=== PATIENT | male | born 1950 | race African-American/Black ===

== ENCOUNTER 2020-04-24 11:19 | Inpatient (IN) ==
[2020-04-24] MEDS ORDERED: DILTIAZEM 50 MG/10 ML VIAL IV STA (11:42)
[2020-04-24] MEDS ORDERED: fentaNYL 100 MCG/2 ML VIAL ONE (12:02)
[2020-04-24] MEDS ORDERED: MIDAZOLAM 2 MG/2 ML VIAL ONE (12:02)
[2020-04-24] MEDS ORDERED: HEPARIN/NACL 0.9% 2 UNITS/ML 1,500 ML IV ONE (12:05)
[2020-04-24] MEDS ORDERED: LIDOCAINE 1% 20 ML VIAL ONE (12:05)
[2020-04-24] MEDS ORDERED: ASPIRIN 325 MG TABLET ONE (12:16)
[2020-04-24] MEDS ORDERED: TICAGRELOR 90 MG TABLET ONE (12:16)
[2020-04-24] MEDS ORDERED: METOPROLOL TARTRATE 5 MG/5 ML VIAL IV ONE (12:19)
[2020-04-24 12:20] LABS: PT Patient Result 10.5 SECS (9.8-11.9); Partial Thromboplastin Time 21.4 SECS (23.9-33.8)
[2020-04-24] MEDS ORDERED: NITROGLYCERIN DRIP 50 MG/250 ML BOTTLE IV ONE (12:35)
[2020-04-24] MEDS ORDERED: SODIUM CHLORIDE 0.9% 1,000 ML IV SCH (13:00)
[2020-04-24] MEDS ORDERED: ACETAMINOPHEN 325 MG TABLET PO PRN (14:24)
[2020-04-24] MEDS ORDERED: ONDANSETRON 4 MG/2 ML VIAL IV PRN (14:24)
[2020-04-24] MEDS ORDERED: MAGNESIUM SULF RIDER 2 GM in PREMIX 1 EACH IV PRN (14:24)
[2020-04-24] MEDS ORDERED: SIMETHICONE CHEW 125 MG TABLET PO PRN (14:24)
[2020-04-24] MEDS ORDERED: hydrALAZINE 20 MG/1 ML VIAL IV PRN (14:24)
[2020-04-24] MEDS ORDERED: ALUMINUM/MAGNES/SIMETH MAX STR 30 ML UDCUP PO PRN (14:24)
[2020-04-24] MEDS ORDERED: MORPHINE 4 MG/1 ML VIAL IV PRN (14:24)
[2020-04-24] MEDS ORDERED: LACTULOSE 20 GM/30 ML UDCUP PO PRN (14:24)
[2020-04-24] MEDS ORDERED: POTASSIUM CHLORIDE 20 MEQ/15 ML UDCUP PER TUBE PRN (14:24)
[2020-04-24] MEDS ORDERED: BISACODYL 5 MG TABLET PO PRN (14:24)
[2020-04-24] MEDS ORDERED: MAGNESIUM SULF RIDER 4 GM in PREMIX 1 EACH IV PRN (14:24)
[2020-04-24] MEDS ORDERED: CALCIUM CARBONATE CHEW 500 MG TABLET PO PRN (14:24)
[2020-04-24 14:34] LABS: Troponin I 1.49 NG/ML (0.00-0.045)
[2020-04-24 14:48] LABS: ABG Base Excess -2.1 MMOL/L (-2.5-2.5); ABG HCO3 22.7 MMOL/L (20-26); ABG Oxygen Saturation 99.4 % (95-100); ABG PCO2 34.9 MM HG (35-48); ABG PH 7.407 (7.35-7.45); ABG TCO2 18.9 MMOL/L (23-27)
[2020-04-24 15:22] LABS: Bilirubin,Urine Negative (Negative); Blood, Urine Large mg/dL (Negative); Glucose,Urine (UA) Negative (Negative); Ketones,Urine Negative (Negative); Nitrite,Urine Negative (Negative); Protein,Urine 30 MG/DL; RBC,Urine 1294 /HPF (0-4); Urine Appearance Slightly Hazy (Clear); Urine Color Red (Yellow); Urine Specific Gravity 1.038 (1.001-1.035); Urine Urobilinogen < 2.0 EU/DL (0.2-1.0)
[2020-04-24 15:27] LABS: Basophils # 0.1 10*3/uL (0.0-0.2); Basophils % 0.3 % (0.0-0.8); Hematocrit 39.5 VOL% (42.0-52.0); Hemoglobin 13.3 GM/DL (14.0-18.0); Immature Granulocytes % 0.6 %; Immature Granulocytes Absolute 0.12 #; Lymphocytes # 0.4 10*3/uL (1.4-4.0); Mean Corpuscular HGB Conc 33.7 GM/DL (32-36); Mean Corpuscular Volume 93.4 FL (87-102); Mean Platelet Volume 10.4 FL (9.6-12.0); Monocytes % 5.3 % (1.7-12.7); Neutrophils % 91.8 % (38.7-73.9); Platelet Count 152 T/CUMM (130-400); Red Blood Count 4.23 MC/CUMM (3.8-5.5); Red Cell Distribution Width 13.5 % (9.3-17.3); White Blood Count 21.5 T/CUMM (4-12)
[2020-04-24 15:52] LABS: Albumin 3.3 G/DL (3.4-5.0); Bilirubin,Total 0.7 MG/DL (0.2-1.0); Osmolality,Calculated 280.8 MOS/KG (273-304)
[2020-04-24 15:54] LABS: CKMB % 4.3 %
[2020-04-24 16:07] LABS: Troponin I 2.14 NG/ML (0.00-0.045)
[2020-04-24 16:16] LABS: Thyroid Stimulating Hormone 0.848 uIU/ml (0.358-3.74)
[2020-04-24 16:28] LABS: Lymphocytes 2 % (20-55); Platelet Estimate Adequate; Segmented Neutrophils 92 % (50-85); Total Cells Counted 100
[2020-04-24] MEDS: cefTRIAXone 1,000 MG in SYRINGE 1 EACH IV SCH (16:31)
[2020-04-24 17:33] LABS: Barbiturates Screen,Urine Negative (Negative); Benzodiazepines Screen,Urine Positive (Negative); Cannabinoid Screen,Urine Positive (Negative); Opiate Screen,Urine Negative (Negative); Phencyclidine Screen,Urine Negative (Negative)
[2020-04-24] MEDS: dilTIAZem Drip 125 MG/125 ML PREMIX IV SCH (18:01)
[2020-04-24 18:49] LABS: CKMB % 4.7 %
[2020-04-24 18:55] LABS: Troponin I 2.49 NG/ML (0.00-0.045)
[2020-04-24] MEDS: ENOXAPARIN 40 MG/0.4 ML SYRINGE SUBCUT SCH (21:38)
[2020-04-25 04:17] LABS: Basophils % 0.2 % (0.0-0.8); Hematocrit 36.1 VOL% (42.0-52.0); Hemoglobin 12.2 GM/DL (14.0-18.0); Immature Granulocytes % 1.6 %; Immature Granulocytes Absolute 0.23 #; Lymphocytes % 7.3 % (21.2-54.2); Mean Corpuscular HGB Conc 33.8 GM/DL (32-36); Mean Corpuscular Volume 90.9 FL (87-102); Mean Platelet Volume 10.7 FL (9.6-12.0); Monocytes % 9.3 % (1.7-12.7); Neutrophils % 81.6 % (38.7-73.9); Platelet Count 141 T/CUMM (130-400); Red Blood Count 3.97 MC/CUMM (3.8-5.5); Red Cell Distribution Width 13.4 % (9.3-17.3); White Blood Count 14.3 T/CUMM (4-12)
[2020-04-25 04:39] LABS: CKMB % 3.1 %; Calcium 8.7 MG/DL (8.5-10.1); Osmolality,Calculated 282.5 MOS/KG (273-304); Risk Ratio 2.4; VLDL CHOLESTEROL 14.8 MG/DL
[2020-04-25] MEDS ORDERED: DOPamine 800 MG/250 ML PREMIX IV PRN (05:40)
[2020-04-25 05:43] LABS: Troponin I 2.43 NG/ML (0.00-0.045)
[2020-04-25] MEDS ORDERED: SODIUM CHLORIDE 0.9% 500 ML IV ONE (05:45)
[2020-04-25 08:12] LABS: ABG Base Excess -1.3 MMOL/L (-2.5-2.5); ABG HCO3 22.4 MMOL/L (20-26); ABG Oxygen Saturation 98.1 % (95-100); ABG PCO2 34.6 MM HG (35-48); ABG PO2 121.2 MM HG (80-95); ABG TCO2 23.5 MMOL/L (23-27)
[2020-04-25] MEDS ORDERED: PANTOPRAZOLE 40 MG VIAL IV SCH (09:00)
[2020-04-25 09:46] LABS: ABG Base Excess -0.8 MMOL/L (-2.5-2.5); ABG Oxygen Saturation 97.8 % (95-100); ABG PCO2 34.9 MM HG (35-48); ABG PH 7.436 (7.35-7.45); ABG PO2 107.5 MM HG (80-95); Allen Test Positive
[2020-04-25] MEDS: dilTIAZem Drip 125 MG/125 ML PREMIX IV SCH (11:50)
[2020-04-25] MEDS: cefTRIAXone 1,000 MG in SYRINGE 1 EACH IV SCH (17:03)
[2020-04-25] MEDS: ROSUVASTATIN 20 MG TABLET PO SCH (21:12)
[2020-04-25] MEDS: ENOXAPARIN 40 MG/0.4 ML SYRINGE SUBCUT SCH (21:12)
[2020-04-26 03:46] LABS: Basophils # 0.1 10*3/uL (0.0-0.2); Basophils % 0.6 % (0.0-0.8); Eosinophils % 0.2 % (0.00-10.9); Hematocrit 34.4 VOL% (42.0-52.0); Hemoglobin 11.5 GM/DL (14.0-18.0); Immature Granulocytes % 0.4 %; Immature Granulocytes Absolute 0.05 #; Lymphocytes # 1.5 10*3/uL (1.4-4.0); Lymphocytes % 12.2 % (21.2-54.2); Mean Corpuscular HGB Conc 33.4 GM/DL (32-36); Mean Platelet Volume 10.9 FL (9.6-12.0); Monocytes % 8.8 % (1.7-12.7); Neutrophils % 77.8 % (38.7-73.9); Platelet Count 138 T/CUMM (130-400); Red Blood Count 3.74 MC/CUMM (3.8-5.5); Red Cell Distribution Width 13.3 % (9.3-17.3); White Blood Count 11.9 T/CUMM (4-12)
[2020-04-26 04:04] LABS: Calcium 8.7 MG/DL (8.5-10.1); Osmolality,Calculated 281.7 MOS/KG (273-304)
[2020-04-26 04:29] LABS: Hypochromasia Slight
[2020-04-26 04:30] LABS: Microcytosis Slight
[2020-04-26 04:31] LABS: Platelet Estimate Adequate
[2020-04-26] MEDS: PANTOPRAZOLE 40 MG TABLET PO SCH (08:22)
[2020-04-26] MEDS: ASPIRIN EC 81 MG TABLET PO SCH (08:22)
[2020-04-26] MEDS: cefTRIAXone 1,000 MG in SYRINGE 1 EACH IV SCH (15:33)
[2020-04-26] MEDS: ROSUVASTATIN 20 MG TABLET PO SCH (20:30)
[2020-04-26] MEDS: ENOXAPARIN 40 MG/0.4 ML SYRINGE SUBCUT SCH (20:30)
[2020-04-27 05:20] LABS: Basophils # 0.1 10*3/uL (0.0-0.2); Basophils % 0.7 % (0.0-0.8); Eosinophils # 0.2 10*3/uL (0.0-0.87); Eosinophils % 2.1 % (0.00-10.9); Hematocrit 34.6 VOL% (42.0-52.0); Hemoglobin 11.5 GM/DL (14.0-18.0); Immature Granulocytes % 0.4 %; Immature Granulocytes Absolute 0.03 #; Lymphocytes # 1.1 10*3/uL (1.4-4.0); Lymphocytes % 12.4 % (21.2-54.2); Mean Corpuscular HGB Conc 33.2 GM/DL (32-36); Mean Platelet Volume 11.1 FL (9.6-12.0); Monocytes % 8.2 % (1.7-12.7); Neutrophils % 76.2 % (38.7-73.9); Platelet Count 140 T/CUMM (130-400); Red Blood Count 3.76 MC/CUMM (3.8-5.5); White Blood Count 8.6 T/CUMM (4-12)
[2020-04-27 05:45] LABS: Calcium 8.6 MG/DL (8.5-10.1); Osmolality,Calculated 281.5 MOS/KG (273-304)
[2020-04-27] MEDS: PANTOPRAZOLE 40 MG TABLET PO SCH (09:07)
[2020-04-27] MEDS: ASPIRIN EC 81 MG TABLET PO SCH (09:07)
[2020-04-27] MEDS ORDERED: INFLUENZA VIRUS VACCINE 0.5 ML SYRINGE IM ONE (14:33)
[2020-04-27] MEDS: cefTRIAXone 1,000 MG in SYRINGE 1 EACH IV SCH (16:19)
[2020-04-27] MEDS: ROSUVASTATIN 20 MG TABLET PO SCH (20:37)
[2020-04-27] MEDS: ENOXAPARIN 40 MG/0.4 ML SYRINGE SUBCUT SCH (20:37)
[2020-04-27] MEDS: SACUBITRIL/VALSARTAN 49-51 MG TABLET PO SCH (20:37)
[2020-04-27] MEDS: carvediloL 3.125 MG TABLET PO SCH (20:37)
[2020-04-28 05:33] LABS: Basophils # 0.1 10*3/uL (0.0-0.2); Eosinophils # 0.3 10*3/uL (0.0-0.87); Eosinophils % 3.5 % (0.00-10.9); Hematocrit 33.5 VOL% (42.0-52.0); Hemoglobin 11.3 GM/DL (14.0-18.0); Immature Granulocytes % 0.2 %; Immature Granulocytes Absolute 0.02 #; Lymphocytes # 1.2 10*3/uL (1.4-4.0); Lymphocytes % 14.6 % (21.2-54.2); Mean Corpuscular HGB Conc 33.7 GM/DL (32-36); Mean Corpuscular Volume 91.5 FL (87-102); Mean Platelet Volume 11.2 FL (9.6-12.0); Monocytes % 10.2 % (1.7-12.7); Neutrophils % 70.5 % (38.7-73.9); Platelet Count 153 T/CUMM (130-400); Red Blood Count 3.66 MC/CUMM (3.8-5.5); Red Cell Distribution Width 12.7 % (9.3-17.3)
[2020-04-28 05:58] LABS: Calcium 8.4 MG/DL (8.5-10.1); Osmolality,Calculated 283.3 MOS/KG (273-304)
[2020-04-28] MEDS: PANTOPRAZOLE 40 MG TABLET PO SCH (09:29)
[2020-04-28] MEDS: ASPIRIN EC 81 MG TABLET PO SCH (09:30)
[2020-04-28] MEDS: SACUBITRIL/VALSARTAN 49-51 MG TABLET PO SCH ×2 (09:30→20:31)
[2020-04-28] MEDS: carvediloL 3.125 MG TABLET PO SCH ×2 (09:31→20:32)
[2020-04-28] MEDS ORDERED: GLUCAGON 1 MG VIAL IM PRN (10:48)
[2020-04-28] MEDS ORDERED: DEXTROSE 50% 25 GM/50 ML VIAL IV PRN (10:48)
[2020-04-28] MEDS: cefTRIAXone 1,000 MG in SYRINGE 1 EACH IV SCH (16:21)
[2020-04-28] MEDS: ROSUVASTATIN 20 MG TABLET PO SCH (20:31)
[2020-04-28] MEDS: ENOXAPARIN 40 MG/0.4 ML SYRINGE SUBCUT SCH (20:32)
[2020-04-29 05:30] LABS: Basophils # 0.1 10*3/uL (0.0-0.2); Basophils % 0.9 % (0.0-0.8); Eosinophils # 0.4 10*3/uL (0.0-0.87); Eosinophils % 5.8 % (0.00-10.9); Hematocrit 35.3 VOL% (42.0-52.0); Immature Granulocytes % 0.3 %; Immature Granulocytes Absolute 0.02 #; Lymphocytes # 1.5 10*3/uL (1.4-4.0); Lymphocytes % 20.6 % (21.2-54.2); Mean Corpuscular Volume 90.3 FL (87-102); Mean Platelet Volume 11.3 FL (9.6-12.0); Neutrophils % 61.4 % (38.7-73.9); Platelet Count 171 T/CUMM (130-400); Red Blood Count 3.91 MC/CUMM (3.8-5.5); Red Cell Distribution Width 12.7 % (9.3-17.3)
[2020-04-29 05:51] LABS: Calcium 8.5 MG/DL (8.5-10.1); Osmolality,Calculated 280.4 MOS/KG (273-304)
[2020-04-29 05:55] LABS: Albumin 2.5 G/DL (3.4-5.0); Bilirubin,Total 0.7 MG/DL (0.2-1.0); Calcium 8.7 MG/DL (8.5-10.1); Osmolality,Calculated 281.4 MOS/KG (273-304); Total Protein 6.4 G/DL (6.4-8.3)
[2020-04-29 06:03] LABS: Eosinophils 9 % (0-10); Hypochromasia 1+; Lymphocytes 16 % (20-55); Microcytosis Slight; Ovalocytes Slight; Platelet Estimate Adequate; Segmented Neutrophils 67 % (50-85); Total Cells Counted 100
[2020-04-29] MEDS: carvediloL 3.125 MG TABLET PO SCH ×2 (08:52→21:22)
[2020-04-29] MEDS: ASPIRIN EC 81 MG TABLET PO SCH (08:53)
[2020-04-29] MEDS: SACUBITRIL/VALSARTAN 49-51 MG TABLET PO SCH ×2 (08:53→21:22)
[2020-04-29] MEDS: CHLORHEXIDINE 0.12% ORAL RINSE 60 ML BOTTLE SWISH/SPIT SCH ×2 (08:54→21:23)
[2020-04-29] MEDS: PANTOPRAZOLE 40 MG TABLET PO SCH (08:54)
[2020-04-29] MEDS: CHLORHEXIDINE 4% SOLN 118 ML BOTTLE TOP SCH ×3 (09:35→21:23)
[2020-04-29] MEDS: SODIUM CHLORIDE 0.9% 1,000 ML IV SCH (10:30)
[2020-04-29] MEDS: cefTRIAXone 1,000 MG in SYRINGE 1 EACH IV SCH (15:31)
[2020-04-29] MEDS ORDERED: DIAZEPAM 5 MG TABLET PO ONE (16:06)
[2020-04-29] MEDS: ROSUVASTATIN 20 MG TABLET PO SCH (21:21)
[2020-04-30] MEDS ORDERED: VANCOMYCIN 500 MG VIAL ONE (04:22)
[2020-04-30] MEDS ORDERED: PAPAVERINE 60 MG/2 ML VIAL ONE (04:22)
[2020-04-30] MEDS ORDERED: VANCOMYCIN 1,000 MG VIAL ONE (04:22)
[2020-04-30] MEDS ORDERED: CEFUROXIME INJ 1,500 MG in SODIUM CHLORIDE 0.9% 100 ML IV ONE (05:00)
[2020-04-30] MEDS ORDERED: DIAZEPAM 5 MG TABLET PO ONE (06:00)
[2020-04-30] MEDS ORDERED: diphenhydrAMINE 50 MG/1 ML VIAL ONE (06:02)
[2020-04-30] MEDS ORDERED: FAMOTIDINE 20 MG/2 ML VIAL IV ONE (06:02)
[2020-04-30] MEDS ORDERED: SUFentanil 250 MCG/5 ML AMP ONE (06:02)
[2020-04-30] MEDS ORDERED: MIDAZOLAM 10 MG/2 ML VIAL ONE (06:02)
[2020-04-30 06:04] LABS: Basophils # 0.1 10*3/uL (0.0-0.2); Basophils % 1.2 % (0.0-0.8); Eosinophils # 0.5 10*3/uL (0.0-0.87); Hematocrit 33.4 VOL% (42.0-52.0); Hemoglobin 11.2 GM/DL (14.0-18.0); Immature Granulocytes % 0.4 %; Immature Granulocytes Absolute 0.03 #; Lymphocytes # 1.4 10*3/uL (1.4-4.0); Lymphocytes % 18.5 % (21.2-54.2); Mean Corpuscular HGB Conc 33.5 GM/DL (32-36); Mean Platelet Volume 10.8 FL (9.6-12.0); Monocytes % 14.2 % (1.7-12.7); Neutrophils % 58.7 % (38.7-73.9); Platelet Count 181 T/CUMM (130-400); Red Blood Count 3.67 MC/CUMM (3.8-5.5); Red Cell Distribution Width 12.8 % (9.3-17.3); White Blood Count 7.4 T/CUMM (4-12)
[2020-04-30 06:20] LABS: Calcium 8.7 MG/DL (8.5-10.1); Osmolality,Calculated 284.3 MOS/KG (273-304)
[2020-04-30 06:27] LABS: Hypochromasia 1+; Microcytosis 1+; Platelet Estimate Adequate
[2020-04-30 07:50] LABS: ABG Base Excess 2.2 MMOL/L (-2.5-2.5); ABG HCO3 26.4 MMOL/L (20-26); ABG PCO2 41.2 MM HG (35-48); ABG PH 7.421 (7.35-7.45); ABG TCO2 23.6 MMOL/L (23-27); Glucose Heart Surgery 108 MG/DL (74-106); Hematocrit Heart Surgery 37.8 PERCENT (42-52); Hemoglobin Heart Surgery 12.3 G/DL (14.0-18.0); Ionized Calcium Arterial 1.19 MMOL/L (1.21-1.46); PCO2 Patient Temp Arterial 41.2 MMHG; PH Patient Temp Arterial 7.421; Patient Temperature 37 CELCIUS; Potassium Heart/CVR 3.9 MMOL/L (3.5-5.1); Sodium Heart/CVR 138 MMOL/L (135-145)
[2020-04-30 08:11] LABS: Bilirubin,Urine Negative (Negative); Blood, Urine Moderate mg/dL (Negative); Glucose,Urine (UA) Negative (Negative); Ketones,Urine Negative (Negative); Mucus,Urine Occasional /LPF (Occasional); Nitrite,Urine Negative (Negative); Protein,Urine Negative; RBC,Urine 82 /HPF (0-4); Squamous Epithelial Cell,Urine Few /HPF (0-10); Urine Appearance CLOUDY (Clear); Urine Color Yellow (Yellow); Urine Specific Gravity 1.015 (1.001-1.035); Urine Urobilinogen < 2.0 EU/DL (0.2-1.0); WBC,Urine 67 /HPF (0-6)
[2020-04-30 08:37] LABS: Hematocrit Heart Surgery 21.9 PERCENT (42-52); PCO2 Patient Temp Venous 33.8 MM HG; PH Patient Temp Venous 7.522; PO2 Patient Temp Venous 35.5 MM HG; Potassium Heart/CVR 4.3 MMOL/L (3.5-5.1); VBG Base Excess 4.9 MEQ/L (0-4); VBG HCO3 28.7 MEQ/L (24-28); VBG Oxygen Saturation 81.5 %; VBG PCO2 39.1 MMHG (41-51); VBG PH 7.476; VBG PO2 43.6 MMHG (17-40)
[2020-04-30 09:05] LABS: Hematocrit Heart Surgery 25.1 PERCENT (42-52); PCO2 Patient Temp Venous 30.6 MM HG; PH Patient Temp Venous 7.562; PO2 Patient Temp Venous 34.4 MM HG; Potassium Heart/CVR 4.1 MMOL/L (3.5-5.1); VBG Base Excess 5.5 MEQ/L (0-4); VBG HCO3 29.2 MEQ/L (24-28); VBG Oxygen Saturation 81.6 %; VBG PCO2 35.4 MMHG (41-51); VBG PH 7.516; VBG PO2 42.4 MMHG (17-40)
[2020-04-30 09:37] LABS: Hematocrit Heart Surgery 28.4 PERCENT (42-52); Hemoglobin Heart Surgery 9.2 G/DL (14.0-18.0); PCO2 Patient Temp Venous 28.4 MM HG; PH Patient Temp Venous 7.588; PO2 Patient Temp Venous 33.9 MM HG; Potassium Heart/CVR 3.9 MMOL/L (3.5-5.1); VBG Base Excess 5.7 MEQ/L (0-4); VBG HCO3 29.3 MEQ/L (24-28); VBG Oxygen Saturation 81.7 %; VBG PCO2 32.9 MMHG (41-51); VBG PH 7.542; VBG PO2 41.8 MMHG (17-40)
[2020-04-30] MEDS ORDERED: LIDOCAINE 2% 5 ML VIAL ONE ×2 (10:13→11:26)
[2020-04-30] MEDS ORDERED: MANNITOL 100 GM/500 ML BAG IV ONE (10:13)
[2020-04-30] MEDS ORDERED: MAGNESIUM SULFATE 5 GM/10 ML VIAL IV ONE (10:14)
[2020-04-30] MEDS ORDERED: SODIUM BICARBONATE 50 MEQ/50 ML VIAL IV ONE (10:14)
[2020-04-30] MEDS ORDERED: POTASSIUM CHLORIDE 20 MEQ/10 ML VIAL ONE (10:14)
[2020-04-30] MEDS ORDERED: HEPARIN 10,000 UNIT/10 ML VIAL ONE (10:14)
[2020-04-30] MEDS ORDERED: PROTAMINE SULFATE 50 MG/5 ML VIAL IV ONE ×3 (10:14→11:32)
[2020-04-30] MEDS ORDERED: ALBUMIN 25% 25 GM/100 ML VIAL IV ONE (10:14)
[2020-04-30] MEDS ORDERED: FUROSEMIDE 20 MG/2 ML VIAL ONE (10:14)
[2020-04-30] MEDS ORDERED: methylPREDNISolone SOD SUC 1,000 MG/8 ML VIAL ONE (10:14)
[2020-04-30] MEDS ORDERED: DEXTROSE 5% KCL 20 MEQ 20 MEQ/1,000 ML BAG IV ONE (10:14)
[2020-04-30] MEDS ORDERED: PROTAMINE SULFATE 250 MG/25 ML VIAL IV ONE (10:14)
[2020-04-30 10:20] LABS: ABG HCO3 27.2 MMOL/L (20-26); ABG PCO2 34.2 MM HG (35-48); ABG PH 7.493 (7.35-7.45); ABG TCO2 24.1 MMOL/L (23-27); Glucose Heart Surgery 195 MG/DL (74-106); Hematocrit Heart Surgery 27.2 PERCENT (42-52); Hemoglobin Heart Surgery 8.8 G/DL (14.0-18.0); Ionized Calcium Arterial 1.22 MMOL/L (1.21-1.46); PCO2 Patient Temp Arterial 34.2 MMHG; PH Patient Temp Arterial 7.493; Patient Temperature 37 CELCIUS; Potassium Heart/CVR 3.9 MMOL/L (3.5-5.1); Sodium Heart/CVR 135 MMOL/L (135-145)
[2020-04-30] MEDS ORDERED: ALBUMIN 5% 12.5 GM/250 ML VIAL IV ONE (10:36)
[2020-04-30] MEDS ORDERED: PHENYLEPHRINE DRIP 40 MG/250 ML PREMIX IV ONE (10:36)
[2020-04-30] MEDS: PHENYLEPHRINE DRIP 40 MG/250 ML PREMIX IV PRN ×2 (11:15→21:15)
[2020-04-30] MEDS: SODIUM CHLORIDE 0.45% 1,000 ML IV SCH (11:15)
[2020-04-30] MEDS ORDERED: PHENYLEPHRINE 10 MG/1 ML VIAL IV ONE (11:26)
[2020-04-30] MEDS ORDERED: SEVOFLURANE 1 UNIT/15 MINUTE INH ONE (11:26)
[2020-04-30] MEDS ORDERED: SODIUM CHLORIDE 0.9% 2,000 ML IV ONE (11:26)
[2020-04-30] MEDS ORDERED: CALCIUM CHLORIDE 1,000 MG/10 ML VIAL IV ONE (11:26)
[2020-04-30] MEDS ORDERED: SODIUM CHLORIDE 0.9% 100 ML IV ONE (11:26)
[2020-04-30] MEDS ORDERED: SODIUM CHLORIDE 0.9% 250 ML IV ONE (11:26)
[2020-04-30] MEDS ORDERED: ETOMIDATE 40 MG/20 ML VIAL IV ONE (11:26)
[2020-04-30] MEDS ORDERED: LACTATED RINGERS 1,000 ML IV ONE (11:26)
[2020-04-30] MEDS ORDERED: NITROGLYCERIN DRIP 50 MG/250 ML BOTTLE IV ONE (11:26)
[2020-04-30] MEDS ORDERED: HEPARIN/NACL 0.9% 2 UNITS/ML 500 ML IV ONE (11:26)
[2020-04-30] MEDS ORDERED: AMINOCAPROIC ACID 5,000 MG/20 ML VIAL ONE (11:26)
[2020-04-30] MEDS ORDERED: VECURONIUM 10 MG VIAL IV ONE (11:26)
[2020-04-30] MEDS ORDERED: NITROPRUSSIDE 100 MG in DEXTROSE 5% 250 ML IV PRN (11:31)
[2020-04-30] MEDS ORDERED: INSULIN REGULAR 100 UNIT/ML IV PRN (11:31)
[2020-04-30] MEDS ORDERED: MIDAZOLAM 10 MG/2 ML VIAL IV PRN (11:31)
[2020-04-30] MEDS ORDERED: CHLORHEXIDINE 4% SOLN 118 ML BOTTLE TOP PRN (11:31)
[2020-04-30] MEDS ORDERED: LACTATED RINGERS 250 ML IV PRN (11:31)
[2020-04-30] MEDS ORDERED: INSULIN REGULAR 100 UNIT/ML IV ONE (11:31)
[2020-04-30] MEDS ORDERED: ACETAMINOPHEN 650 MG SUPP RECTAL PRN (11:31)
[2020-04-30] MEDS ORDERED: POTASSIUM CHLORIDE RIDER 10 MEQ in PREMIX 1 EACH IV PRN (11:31)
[2020-04-30] MEDS ORDERED: MORPHINE 10 MG/1 ML VIAL IV PRN (11:31)
[2020-04-30] MEDS ORDERED: CALCIUM CHLORIDE 1,000 MG/10 ML SYRINGE IV PRN (11:31)
[2020-04-30] MEDS ORDERED: MAGNESIUM SULF RIDER 4 GM in PREMIX 1 EACH IV PRN (11:31)
[2020-04-30] MEDS ORDERED: MORPHINE 4 MG/1 ML VIAL IV PRN (11:31)
[2020-04-30] MEDS ORDERED: MAGNESIUM SULF RIDER 2 GM in PREMIX 1 EACH IV PRN (11:31)
[2020-04-30] MEDS ORDERED: POTASSIUM CHLORIDE RIDER 20 MEQ in PREMIX 1 EACH IV PRN (11:31)
[2020-04-30] MEDS ORDERED: SODIUM CHLORIDE 0.45% 1,000 ML IV SCH (11:31)
[2020-04-30] MEDS ORDERED: ONDANSETRON 4 MG/2 ML VIAL IV PRN (11:31)
[2020-04-30] MEDS ORDERED: DEXTROSE 50% 25 GM/50 ML VIAL IV PRN ×2 (11:31)
[2020-04-30] MEDS ORDERED: VECURONIUM 10 MG VIAL IV PRN ×2 (11:31)
[2020-04-30] MEDS ORDERED: MIDAZOLAM 2 MG/2 ML VIAL IV PRN (11:31)
[2020-04-30] MEDS ORDERED: INSULIN REGULAR DRIP 100 ML IV SCH (11:31)
[2020-04-30 11:38] LABS: ABG Base Excess 2.5 MMOL/L (-2.5-2.5); ABG HCO3 26.7 MMOL/L (20-26); ABG Oxygen Saturation 97.5 % (95-100); ABG PCO2 38.9 MM HG (35-48); ABG PH 7.444 (7.35-7.45); ABG PO2 89.7 MM HG (80-95); ABG TCO2 24.1 MMOL/L (23-27); Glucose Heart Surgery 168 MG/DL (74-106); Hematocrit Heart Surgery 31.5 PERCENT (42-52); Hemoglobin Heart Surgery 10.2 G/DL (14.0-18.0); Potassium Heart/CVR 3.8 MMOL/L (3.5-5.1)
[2020-04-30 11:43] LABS: Basophils # 0.1 10*3/uL (0.0-0.2); Basophils % 0.6 % (0.0-0.8); Eosinophils # 0.2 10*3/uL (0.0-0.87); Eosinophils % 1.7 % (0.00-10.9); Hematocrit 29.8 VOL% (42.0-52.0); Hemoglobin 10.3 GM/DL (14.0-18.0); Immature Granulocytes % 0.6 %; Immature Granulocytes Absolute 0.07 #; Lymphocytes # 1.1 10*3/uL (1.4-4.0); Lymphocytes % 9.1 % (21.2-54.2); Mean Corpuscular HGB Conc 34.6 GM/DL (32-36); Mean Corpuscular Volume 90.6 FL (87-102); Mean Platelet Volume 10.7 FL (9.6-12.0); Monocytes % 6.2 % (1.7-12.7); Neutrophils % 81.8 % (38.7-73.9); Platelet Count 133 T/CUMM (130-400); Red Blood Count 3.29 MC/CUMM (3.8-5.5); Red Cell Distribution Width 12.8 % (9.3-17.3); White Blood Count 12.5 T/CUMM (4-12)
[2020-04-30 11:55] LABS: INR 1.6; PT Patient Result 17.2 SECS (9.8-11.9)
[2020-04-30 12:01] LABS: CKMB % 7.7 %
[2020-04-30 12:02] LABS: Troponin I 4.18 NG/ML (0.00-0.045)
[2020-04-30 12:19] LABS: Albumin 2.5 G/DL (3.4-5.0); Bilirubin,Total 0.8 MG/DL (0.2-1.0); Calcium 8.1 MG/DL (8.5-10.1); Osmolality,Calculated 279.7 MOS/KG (273-304); Total Protein 5.9 G/DL (6.4-8.3)
[2020-04-30] MEDS: ALBUMIN 5% 12.5 GM in PREMIX 1 EACH IV PRN ×7 (12:40→21:29)
[2020-04-30 12:43] LABS: Hematocrit Heart Surgery 33.8 PERCENT (42-52); PCO2 Patient Temp Venous 51.1 MM HG; PH Patient Temp Venous 7.365; PO2 Patient Temp Venous 27.7 MM HG; VBG Base Excess 2.9 MEQ/L (0-4); VBG Oxygen Saturation 42.7 %; VBG PCO2 51.1 MMHG (41-51); VBG PH 7.365; VBG PO2 27.7 MMHG (17-40)
[2020-04-30] MEDS: LACTATED RINGERS 1,000 ML IV PRN ×3 (12:55→16:50)
[2020-04-30] MEDS: PANTOPRAZOLE 40 MG TABLET PO SCH (13:17)
[2020-04-30] MEDS: carvediloL 3.125 MG TABLET PO SCH (13:17)
[2020-04-30] MEDS: CHLORHEXIDINE 0.12% ORAL RINSE 60 ML BOTTLE SWISH/SPIT SCH ×2 (13:17→21:58)
[2020-04-30] MEDS: SACUBITRIL/VALSARTAN 49-51 MG TABLET PO SCH (13:17)
[2020-04-30] MEDS: ASPIRIN EC 81 MG TABLET PO SCH (13:17)
[2020-04-30] MEDS: SODIUM CHLORIDE 0.9% 1,000 ML IV SCH (13:18)
[2020-04-30 15:04] LABS: ABG Base Excess 1.6 MMOL/L (-2.5-2.5); ABG HCO3 25.9 MMOL/L (20-26); ABG Oxygen Saturation 98.9 % (95-100); ABG PCO2 42.7 MM HG (35-48); ABG PH 7.402 (7.35-7.45); ABG TCO2 24.4 MMOL/L (23-27); Glucose Heart Surgery 172 MG/DL (74-106); Hematocrit Heart Surgery 28.6 PERCENT (42-52); Hemoglobin Heart Surgery 9.2 G/DL (14.0-18.0); Potassium Heart/CVR 4.2 MMOL/L (3.5-5.1)
[2020-04-30] MEDS: cefTRIAXone 1,000 MG in SYRINGE 1 EACH IV SCH (17:18)
[2020-04-30] MEDS: CEFUROXIME INJ 1,500 MG in SYRINGE 1 EACH IV SCH (18:48)
[2020-04-30 19:21] LABS: ABG Base Excess 1.5 MMOL/L (-2.5-2.5); ABG HCO3 25.8 MMOL/L (20-26); ABG Oxygen Saturation 99.1 % (95-100); ABG PCO2 41.2 MM HG (35-48); ABG PH 7.412 (7.35-7.45); ABG TCO2 23.8 MMOL/L (23-27); Glucose Heart Surgery 167 MG/DL (74-106); Potassium Heart/CVR 4.6 MMOL/L (3.5-5.1)
[2020-04-30] MEDS: INSULIN REGULAR 100 UNIT/ML SUBCUT SCH ×2 (19:49→23:22)
[2020-04-30 22:34] LABS: CKMB % 4.4 %
[2020-04-30 22:35] LABS: Troponin I 5.53 NG/ML (0.00-0.045)
[2020-04-30 22:56] LABS: ABG Base Excess 1.7 MMOL/L (-2.5-2.5); ABG HCO3 25.9 MMOL/L (20-26); ABG Oxygen Saturation 98.9 % (95-100); ABG PCO2 38.5 MM HG (35-48); ABG PH 7.435 (7.35-7.45); ABG TCO2 23.9 MMOL/L (23-27); Glucose Heart Surgery 150 MG/DL (74-106); Hemoglobin Heart Surgery 8.7 G/DL (14.0-18.0); Potassium Heart/CVR 4.3 MMOL/L (3.5-5.1)
[2020-04-30] MEDS ORDERED: FUROSEMIDE 40 MG/4 ML VIAL IV ONE (23:47)
[2020-05-01 00:35] LABS: ABG Base Excess 1.3 MMOL/L (-2.5-2.5); ABG HCO3 25.6 MMOL/L (20-26); ABG Oxygen Saturation 98.9 % (95-100); ABG PCO2 38.7 MM HG (35-48); ABG PH 7.428 (7.35-7.45); ABG TCO2 23.6 MMOL/L (23-27); Glucose Heart Surgery 150 MG/DL (74-106); Hematocrit Heart Surgery 26.9 PERCENT (42-52); Hemoglobin Heart Surgery 8.7 G/DL (14.0-18.0); Potassium Heart/CVR 4.1 MMOL/L (3.5-5.1)
[2020-05-01 02:08] LABS: ABG Base Excess 2.7 MMOL/L (-2.5-2.5); ABG HCO3 26.8 MMOL/L (20-26); ABG Oxygen Saturation 97.3 % (95-100); ABG PCO2 40.7 MM HG (35-48); ABG PH 7.431 (7.35-7.45); ABG PO2 84.8 MM HG (80-95); ABG TCO2 24.7 MMOL/L (23-27); Glucose Heart Surgery 157 MG/DL (74-106); Hematocrit Heart Surgery 30.2 PERCENT (42-52); Hemoglobin Heart Surgery 9.7 G/DL (14.0-18.0); Potassium Heart/CVR 3.9 MMOL/L (3.5-5.1)
[2020-05-01 03:59] LABS: ABG Base Excess 3.2 MMOL/L (-2.5-2.5); ABG HCO3 27.3 MMOL/L (20-26); ABG Oxygen Saturation 96.7 % (95-100); ABG PCO2 39.7 MM HG (35-48); ABG PH 7.455 (7.35-7.45); ABG PO2 93.4 MM HG (80-95); ABG TCO2 28.5 MMOL/L (23-27); Glucose Heart Surgery 144 MG/DL (74-106); Hemoglobin Heart Surgery 10.2 G/DL (14.0-18.0); Potassium Heart/CVR 3.7 MMOL/L (3.5-5.1)
[2020-05-01] MEDS: INSULIN REGULAR 100 UNIT/ML SUBCUT SCH ×4 (04:03→17:00)
[2020-05-01 04:17] LABS: Hematocrit 28.5 VOL% (42.0-52.0); Hemoglobin 9.8 GM/DL (14.0-18.0); Immature Granulocytes % 0.4 %; Immature Granulocytes Absolute 0.04 #; Lymphocytes # 0.4 10*3/uL (1.4-4.0); Lymphocytes % 4.8 % (21.2-54.2); Mean Corpuscular HGB Conc 34.4 GM/DL (32-36); Mean Corpuscular Volume 89.6 FL (87-102); Mean Platelet Volume 11.2 FL (9.6-12.0); Monocytes % 6.6 % (1.7-12.7); Neutrophils % 88.2 % (38.7-73.9); Platelet Count 98 T/CUMM (130-400); Red Blood Count 3.18 MC/CUMM (3.8-5.5); Red Cell Distribution Width 13.3 % (9.3-17.3)
[2020-05-01 04:42] LABS: Albumin 3.7 G/DL (3.4-5.0); Bilirubin,Direct 0.18 MG/DL (0.0-0.20); Bilirubin,Total 0.4 MG/DL (0.2-1.0); Total Protein 6.4 G/DL (6.4-8.3)
[2020-05-01 04:44] LABS: Lymphocytes 5 % (20-55); Platelet Estimate Decreased; Segmented Neutrophils 90 % (50-85)
[2020-05-01 04:45] LABS: Hypochromasia 1+; Microcytosis 1+; Ovalocytes Slight; Total Cells Counted 100
[2020-05-01 05:01] LABS: Troponin I 5.06 NG/ML (0.00-0.045)
[2020-05-01 05:46] LABS: ABG Base Excess 3.1 MMOL/L (-2.5-2.5); ABG HCO3 27.2 MMOL/L (20-26); ABG Oxygen Saturation 98.5 % (95-100); ABG PCO2 42.4 MM HG (35-48); ABG PH 7.425 (7.35-7.45); ABG TCO2 25.1 MMOL/L (23-27); Glucose Heart Surgery 145 MG/DL (74-106); Hematocrit Heart Surgery 32.7 PERCENT (42-52); Hemoglobin Heart Surgery 10.6 G/DL (14.0-18.0); Potassium Heart/CVR 4.2 MMOL/L (3.5-5.1)
[2020-05-01] MEDS: CEFUROXIME INJ 1,500 MG in SYRINGE 1 EACH IV SCH ×2 (05:48→18:11)
[2020-05-01] MEDS: CHLORHEXIDINE 0.12% ORAL RINSE 60 ML BOTTLE SWISH/SPIT SCH ×2 (08:59→20:39)
[2020-05-01] MEDS: carvediloL 3.125 MG TABLET PO SCH ×2 (08:59→20:39)
[2020-05-01] MEDS: ASPIRIN EC 325 MG TABLET PO SCH (08:59)
[2020-05-01] MEDS: SODIUM CHLORIDE 0.45% 1,000 ML IV SCH (14:39)
[2020-05-01] MEDS: cefTRIAXone 1,000 MG in SYRINGE 1 EACH IV SCH (17:04)
[2020-05-01] MEDS ORDERED: ONDANSETRON 4 MG/2 ML VIAL IV PRN (17:35)
[2020-05-01] MEDS ORDERED: MAGNESIUM SULF RIDER 2 GM in PREMIX 1 EACH IV PRN (17:35)
[2020-05-01] MEDS ORDERED: POTASSIUM CHLORIDE 20 MEQ TABLET PO PRN (17:35)
[2020-05-01] MEDS ORDERED: ALUMINUM/MAGNES/SIMETH MAX STR 30 ML UDCUP PO PRN (17:35)
[2020-05-01] MEDS ORDERED: MAGNESIUM SULF RIDER 4 GM in PREMIX 1 EACH IV PRN (17:35)
[2020-05-01] MEDS ORDERED: ACETAMINOPHEN 325 MG TABLET PO PRN (17:35)
[2020-05-01] MEDS ORDERED: ZALEPLON 5 MG CAPSULE PO PRN (17:35)
[2020-05-01] MEDS ORDERED: MAGNESIUM HYDROXIDE SUSP 30 ML UDCUP PO PRN (17:35)
[2020-05-01] MEDS ORDERED: GLUCAGON 1 MG VIAL IM PRN (17:35)
[2020-05-01] MEDS ORDERED: DEXTROSE 50% 25 GM/50 ML VIAL IV PRN (17:35)
[2020-05-01 17:59] LABS: CKMB % 0.9 %
[2020-05-01 18:02] LABS: Troponin I 4.74 NG/ML (0.00-0.045)
[2020-05-01] MEDS ORDERED: SODIUM CHLORIDE 0.9% 100 ML IV ONE (18:10)
[2020-05-01] MEDS: ATORVASTATIN 20 MG TABLET PO SCH (20:39)
[2020-05-02 05:50] LABS: Basophils % 0.1 % (0.0-0.8); Hematocrit 32.5 VOL% (42.0-52.0); Hemoglobin 10.9 GM/DL (14.0-18.0); Immature Granulocytes % 0.5 %; Immature Granulocytes Absolute 0.08 #; Lymphocytes # 0.9 10*3/uL (1.4-4.0); Mean Corpuscular HGB Conc 33.5 GM/DL (32-36); Mean Corpuscular Volume 92.1 FL (87-102); Mean Platelet Volume 11.5 FL (9.6-12.0); Monocytes % 10.2 % (1.7-12.7); Neutrophils % 83.2 % (38.7-73.9); Platelet Count 116 T/CUMM (130-400); Red Blood Count 3.53 MC/CUMM (3.8-5.5); Red Cell Distribution Width 13.6 % (9.3-17.3); White Blood Count 15.4 T/CUMM (4-12)
[2020-05-02] MEDS ORDERED: FUROSEMIDE 40 MG/4 ML VIAL IV ONE (06:00)
[2020-05-02 06:26] LABS: Hypochromasia Slight; Microcytosis 1+; Platelet Estimate Decreased
[2020-05-02 06:32] LABS: Alanine Aminotransferase 44 U/L (16-61); Albumin 3.3 G/DL (3.4-5.0); Alkaline Phosphatase 57 U/L (45-117); Aspartate Amino Transferase 54 U/L (0-37); Bilirubin,Indirect 1.1 MG/DL (0.0-1.0); Blood Urea Nitrogen 29 MG/DL (7-18); Calcium 8.8 MG/DL (8.5-10.1); Estimated Glom Filtration Rate 71 ML/MIN; Glucose 111 MG/DL (74-106); Osmolality,Calculated 289.1 MOS/KG (273-304); Total Protein 6.6 G/DL (6.4-8.3)
[2020-05-02] MEDS ORDERED: SODIUM CHLOR 0.45% KCL 20 MEQ 20 MEQ/1,000 ML BAG IV SCH (09:00)
[2020-05-02] MEDS ORDERED: THROMBIN TOPICAL (RECOMBINANT) 5,000 UNIT VIAL TOP ONE (09:33)
[2020-05-02] MEDS: DOCUSATE SODIUM 100 MG CAPSULE PO SCH (10:01)
[2020-05-02] MEDS: ASPIRIN EC 325 MG TABLET PO SCH (10:01)
[2020-05-02] MEDS: FERROUS SULFATE 325 MG TABLET PO SCH (10:01)
[2020-05-02] MEDS: carvediloL 3.125 MG TABLET PO SCH ×2 (10:02→22:43)
[2020-05-02] MEDS: CHLORHEXIDINE 0.12% ORAL RINSE 60 ML BOTTLE SWISH/SPIT SCH ×2 (10:02→22:43)
[2020-05-02] MEDS: PANTOPRAZOLE 40 MG TABLET PO SCH (10:02)
[2020-05-02] MEDS: SACUBITRIL/VALSARTAN 49-51 MG TABLET PO SCH ×2 (12:27→22:42)
[2020-05-02] MEDS: cefTRIAXone 1,000 MG in SYRINGE 1 EACH IV SCH (17:04)
[2020-05-02] MEDS: ATORVASTATIN 20 MG TABLET PO SCH (22:42)
[2020-05-03 07:15] LABS: Alanine Aminotransferase 98 U/L (16-61); Albumin 3.3 G/DL (3.4-5.0); Alkaline Phosphatase 82 U/L (45-117); Aspartate Amino Transferase 82 U/L (0-37); Bilirubin,Indirect 0.6 MG/DL (0.0-1.0); Blood Urea Nitrogen 29 MG/DL (7-18); Calcium 8.9 MG/DL (8.5-10.1); Estimated Glom Filtration Rate 78 ML/MIN; Glucose 105 MG/DL (74-106); Osmolality,Calculated 286.3 MOS/KG (273-304)
[2020-05-03 07:17] LABS: Basophils % 0.2 % (0.0-0.8); Eosinophils # 0.1 10*3/uL (0.0-0.87); Eosinophils % 0.8 % (0.00-10.9); Hematocrit 34.2 VOL% (42.0-52.0); Hemoglobin 11.7 GM/DL (14.0-18.0); Immature Granulocytes % 0.5 %; Immature Granulocytes Absolute 0.07 #; Lymphocytes # 1.3 10*3/uL (1.4-4.0); Lymphocytes % 8.7 % (21.2-54.2); Mean Corpuscular HGB Conc 34.2 GM/DL (32-36); Mean Corpuscular Volume 91.7 FL (87-102); Mean Platelet Volume 11.3 FL (9.6-12.0); Monocytes % 9.9 % (1.7-12.7); Neutrophils % 79.9 % (38.7-73.9); Platelet Count 139 T/CUMM (130-400); Red Blood Count 3.73 MC/CUMM (3.8-5.5); Red Cell Distribution Width 13.3 % (9.3-17.3); White Blood Count 14.4 T/CUMM (4-12)
[2020-05-03] MEDS: ASPIRIN EC 325 MG TABLET PO SCH (09:04)
[2020-05-03] MEDS: carvediloL 3.125 MG TABLET PO SCH ×2 (09:04→22:55)
[2020-05-03] MEDS: DOCUSATE SODIUM 100 MG CAPSULE PO SCH (09:04)
[2020-05-03] MEDS: FUROSEMIDE 40 MG TABLET PO SCH (09:04)
[2020-05-03] MEDS: POTASSIUM CHLORIDE 20 MEQ TABLET PO SCH (09:04)
[2020-05-03] MEDS: SACUBITRIL/VALSARTAN 49-51 MG TABLET PO SCH ×2 (09:05→22:56)
[2020-05-03] MEDS: PANTOPRAZOLE 40 MG TABLET PO SCH (09:05)
[2020-05-03] MEDS: FERROUS SULFATE 325 MG TABLET PO SCH (09:05)
[2020-05-03] MEDS: CHLORHEXIDINE 0.12% ORAL RINSE 60 ML BOTTLE SWISH/SPIT SCH ×2 (09:07→22:56)
[2020-05-03] MEDS: cefTRIAXone 1,000 MG in SYRINGE 1 EACH IV SCH (16:29)
[2020-05-03] MEDS: oxyCODONE/ACETAMINOPHEN 5-325 MG TABLET PO PRN (16:32)
[2020-05-03] MEDS: ATORVASTATIN 20 MG TABLET PO SCH (22:55)
[2020-05-04] MEDS: oxyCODONE/ACETAMINOPHEN 5-325 MG TABLET PO PRN (06:03)
[2020-05-04] MEDS: ASPIRIN EC 325 MG TABLET PO SCH (09:40)
[2020-05-04] MEDS: DOCUSATE SODIUM 100 MG CAPSULE PO SCH (09:40)
[2020-05-04] MEDS: PANTOPRAZOLE 40 MG TABLET PO SCH (09:40)
[2020-05-04] MEDS: POTASSIUM CHLORIDE 20 MEQ TABLET PO SCH (09:40)
[2020-05-04] MEDS: FUROSEMIDE 40 MG TABLET PO SCH (09:40)
[2020-05-04] MEDS: FERROUS SULFATE 325 MG TABLET PO SCH (09:40)
[2020-05-04] MEDS: carvediloL 3.125 MG TABLET PO SCH ×2 (09:40→21:22)
[2020-05-04] MEDS: SACUBITRIL/VALSARTAN 49-51 MG TABLET PO SCH ×2 (09:40→21:21)
[2020-05-04] MEDS: CHLORHEXIDINE 0.12% ORAL RINSE 60 ML BOTTLE SWISH/SPIT SCH ×2 (09:45→21:22)
[2020-05-04] MEDS: cefTRIAXone 1,000 MG in SYRINGE 1 EACH IV SCH (15:38)
[2020-05-04] MEDS: ATORVASTATIN 20 MG TABLET PO SCH (21:22)
[2020-05-05 06:12] LABS: Basophils % 0.3 % (0.0-0.8); Eosinophils # 0.4 10*3/uL (0.0-0.87); Eosinophils % 3.7 % (0.00-10.9); Hematocrit 34.5 VOL% (42.0-52.0); Hemoglobin 11.9 GM/DL (14.0-18.0); Immature Granulocytes % 0.3 %; Immature Granulocytes Absolute 0.04 #; Lymphocytes # 1.6 10*3/uL (1.4-4.0); Lymphocytes % 13.5 % (21.2-54.2); Mean Corpuscular HGB Conc 34.5 GM/DL (32-36); Mean Corpuscular Volume 90.6 FL (87-102); Mean Platelet Volume 11.5 FL (9.6-12.0); Monocytes % 12.5 % (1.7-12.7); Neutrophils % 69.7 % (38.7-73.9); Platelet Count 151 T/CUMM (130-400); Red Blood Count 3.81 MC/CUMM (3.8-5.5); Red Cell Distribution Width 13.2 % (9.3-17.3); White Blood Count 11.6 T/CUMM (4-12)
[2020-05-05 06:37] LABS: Alanine Aminotransferase 128 U/L (16-61); Albumin 2.8 G/DL (3.4-5.0); Alkaline Phosphatase 106 U/L (45-117); Aspartate Amino Transferase 68 U/L (0-37); Bilirubin,Indirect 0.8 MG/DL (0.0-1.0); Blood Urea Nitrogen 24 MG/DL (7-18); Calcium 8.9 MG/DL (8.5-10.1); Estimated Glom Filtration Rate 78 ML/MIN; Glucose 100 MG/DL (74-106); Osmolality,Calculated 278.7 MOS/KG (273-304); Total Protein 6.7 G/DL (6.4-8.3)
[2020-05-05 06:47] LABS: Troponin I 0.791 NG/ML (0.00-0.045)
[2020-05-05] MEDS: SACUBITRIL/VALSARTAN 49-51 MG TABLET PO SCH (09:45)
[2020-05-05] MEDS: ASPIRIN EC 325 MG TABLET PO SCH (09:45)
[2020-05-05] MEDS: FERROUS SULFATE 325 MG TABLET PO SCH (09:46)
[2020-05-05] MEDS: DOCUSATE SODIUM 100 MG CAPSULE PO SCH (09:46)
[2020-05-05] MEDS: POTASSIUM CHLORIDE 20 MEQ TABLET PO SCH (09:46)
[2020-05-05] MEDS: CHLORHEXIDINE 0.12% ORAL RINSE 60 ML BOTTLE SWISH/SPIT SCH (09:47)
[2020-05-05] MEDS: FUROSEMIDE 40 MG TABLET PO SCH (09:47)
[2020-05-05] MEDS: PANTOPRAZOLE 40 MG TABLET PO SCH (09:47)
[2020-05-05] MEDS: carvediloL 3.125 MG TABLET PO SCH (09:47)
[2020-05-05] MEDS: oxyCODONE/ACETAMINOPHEN 5-325 MG TABLET PO PRN (09:52)
[2020-05-05 12:09] VITALS: BP 105/73
== END 2020-05-05 12:51 | disposition home health service (06) | DRG 216 ==
LOC: N.ED 11:19 → N.ICU 12:01 → SUATTDRO 13:20 → N.ICU 13:20 → N.TELES 04-26 10:14 → N.CVR 04-30 11:08 → N.TELES 05-01 17:16
PROVIDERS: ADMIT Nurse Practitioner; ATTEND Internal Medicine Cardiovascular Disease